=== PATIENT | male | born 1995 | race Asian ===

== ENCOUNTER 2020-01-17 20:40 | Emergency (ER) | payer OTHER ==
[~2020-01-17] VITALS: Ht 167.6 cm; Wt 80.0 kg
[2020-01-17 20:53] VITALS: BP 113/72; PULSE 86; TEMP 98.1
== END 2020-01-17 21:35 | disposition home or self-care (01) ==
LOC: COL.ER 20:40
DX: S00.36XA Insect bite (nonvenomous) of nose, initial encounter (principal); F17.290 Nicotine dependence, other tobacco product, uncomplicated; W57.XXXA Bitten or stung by nonvenomous insect and other nonvenomous arthropods, initial encounter